=== PATIENT | male | born 1990 | race Caucasian/White ===

== ENCOUNTER 2022-12-20 22:57 | Emergency (ER) | payer MEDICAID, SELFPAY ==
[2022-12-20 23:13] VITALS: BP 120/65; PULSE 73; RESP 20; TEMP 36.1; O2SAT 98; BMI 37.2
--- NOTE | 2022-12-20 23:48 | ED.EAR ---
HPI - Ear Problem General Chief complaint: Ear Problems Stated complaint: Left ear pain Time Seen by Provider: 12/20/22 23:34 Source: patient Mode of arrival: ambulatory Limitations: no limitations History of Present Illness HPI Narrative: Patient comes to the emergency room complaining of left-sided ear pain for 3-4 days. Patient states that he has noticed some crusting on the outside of the ear canal. Patient is here chills, no sore throat. No loss of hearing Related Data Previous Rx's Medication Instructions Recorded amoxicillin 500 mg-potassium 1 tab PO BID #20 tabs 12/20/22 clavulanate 125 mg tablet (Augmentin) ketorolac 10 mg tablet 10 mg PO TID PRN pain #10 tabs 12/20/22 Allergies Allergy/AdvReac Type Severity Reaction Status Date / Time No Known Allergies Allergy Verified 12/20/22 23:44 Review of Systems Review of Systems: Constitutional : No Weight loss, No Fever, No Chills, No Night Sweats, No Fatigue, No Malaise ENT/Mouth : No Hearing loss, complaining of left-sided Ear Pain, No Nasal Congestion, No Sinus Pain, No Hoarseness, No sore throat, No Rhinorrhea, No Swallowing Difficulty Eyes: No Eye Pain, No Swelling, No Redness, No Foreign Body, No Discharge, No Vision Changes Cardiovascular : No Chest Pain, No SOB, No Dyspnea on Exertion, No Orthopnea, No Edema, No Palpitations Respiratory : No Cough, No Sputum, No Wheezing, No Smoke Exposure, No Dyspnea Gastrointestinal : No Nausea, No Vomiting, No Diarrhea, No Constipation, No abdominal Pain, No Hematochezia, No Melena Genitourinary : no irregular bleeding, No Dysuria, No Urinary Frequency, No Hematuria, No Urinary Incontinence, No Urgency, No Flank Pain, No Urinary Flow Changes, No Hesitancy Musculoskeletal : No joint pain, No Myalgias, No Joint Swelling Skin : No Skin Lesions, No rash Neuro : No Weakness, No Numbness, No Paresthesias, No Loss of Consciousness, No Dizziness, No Headache Psych : No Anxiety/Panic, No Depression, No SI/HI/AH/VH, No Social Issues, Heme/Lymph: No Bruising, No Bleeding,No Lymphadenopathy Endocrine : No Polyuria, No Polydipsia, No Temperature Intolerance PMFSH Social History Social History Advance Directives: No Advance Directives Information Provided: Yes Physical Exam Vital Signs: Vital Signs: Last Vital Signs Temp 97.0 F 12/20/22 23:13 Pulse 73 12/20/22 23:13 Resp 20 12/20/22 23:13 BP 120/65 12/20/22 23:13 Pulse Ox 98 12/20/22 23:13 O2 Del Method Room Air 12/20/22 23:13 BMI result Body Mass Index 37.2 Const: Other: Appearance: Alert. Oriented X3. No acute distress. Eyes: Pupils equal, round and reactive to light. ENT: Pharynx normal. right ear within normal limits, left ear ear canal is erythematous, swollen, tympanic membrane is not perforated. No mastoid bone tenderness bilaterally Neck: Normal inspection. Neck supple. No lymph nodes noted. No crepitus CVS: Normal heart rate and rhythm. Pulses normal. Normal S1 and S2 Respiratory: No respiratory distress. Breath sounds normal. No Wheezing. No rales Abdomen: Soft and nontender. No rigidity. No distention. Skin: Skin warm and dry. Normal skin color. Normal skin turgor. Extremities: No lower extremity edema. No Lacerations. No Rash Neuro: Oriented X 3. No motor deficit. No sensory deficit. Moving all extremities. No slurred speech. CN 2 through 12 grossly intact Psych: calm, cooperative, normal affect Medical Decision Making Medical Decision Making MDM Narrative: - I discussed the physical exam with the patient, patient has otitis media, no signs of otitis externa, patient denies swimming recently - patient was given 1 dose of Augmentin and IM Toradol Differential Diagnosis Differential Diagnoses: The differential diagnosis associated with the presentation includes ( otitis media, otitis externa, otalgia) Discharge Plan Discharge Clinical Impression: Otitis media Patient Disposition: Home, Self-Care Instructions: Ear Infection (ED) Additional Instructions: Please follow-up with your primary care physician tomorrow. If you have any worsening or new symptoms, please return to the emergency room or call 911 Prescriptions: New amoxicillin-pot clavulanate [Augmentin] 500-125 mg tablet 1 tab PO BID Qty: 20 0RF ketorolac 10 mg tablet 10 mg PO TID PRN (Reason: pain) Qty: 10 0RF Rx Instructions: do not use Aleve/ibuprofen / naproxen or any NSAIDs with this medication, only Tylenol if needed
[2022-12-20] MEDS: Amoxicillin/Potassium Clav 875 MG TABLET PO (23:55)
[2022-12-20] MEDS: Ketorolac Tromethamine 60 MG/2 ML VIAL IM (23:55)
== END 2022-12-21 00:10 | disposition home or self-care (01) ==
PROVIDERS: Emergency Provider Emergency Medicine; PCP Internal Medicine
DX: H66.92 Otitis media, unspecified, left ear (principal)
CPT/HCPCS: 96372; 99284; J1885